=== PATIENT | male | born 1950 | race Caucasian/White ===

== ENCOUNTER 2017-09-02 10:18 | Inpatient (IN) | payer MEDICARE, BC ==
[2017-09-02] MEDS ORDERED: Ondansetron INJ* 2 MG/ML VIAL ONE (10:22)
[2017-09-02] MEDS ORDERED: Ondansetron INJ* 2 MG/ML VIAL IV ONE (10:33)
[2017-09-02] MEDS ORDERED: NS 0.9% 1000 ML* 2,000 ML IV ONE (10:33)
--- NOTE | 2017-09-02 11:09 | RAD ---
Indication: Syncope. Single frontal view of the chest performed at 1054 hours was reviewed. No prior study is available for comparison. No mediastinal shift is noted. Heart is of normal size and configuration. Lung cruz appear clear. IMPRESSION: NO ACTIVE CARDIOPULMONARY DISEASE IS NOTED.
[2017-09-02 11:17] LABS: EGFR Non-African American 101.1 (>60)
--- NOTE | 2017-09-02 11:31 | RAD ---
Indication: Syncope. CT of the brain was performed without IV contrast. No prior study is available for comparison. Ventricular structures are midline. No midline shift is noted. The extra-axial spaces are unremarkable. High density areas are noted in the basal ganglia bilaterally consistent with basal ganglia calcifications. No intracranial mass or hemorrhage is noted. Mastoid air cells are well aerated. Paranasal sinuses are clear. IMPRESSION: NO INTRACRANIAL MASS OR HEMORRHAGE IS NOTED.
--- NOTE | 2017-09-02 11:34 | RAD ---
Indication: Syncope, neck injury. CT of the cervical spine was obtained in the axial plane. Sagittal and coronal reconstructed images were obtained. The skull base demonstrates no fracture. The C1 ring is grossly intact. The remainder of the vertebral bodies appear normal in height. At C2-C3 there is osteophyte formation. No fractures noted. No central or foraminal stenosis is noted. C3-C4 spondylitic ridge with left uncovertebral joint and left facet arthropathy resulting in left foraminal stenosis. No fracture is noted. At C4-C5 spondylitic ridge with osteophyte formation is noted. Left uncovertebral joint hypertrophy and left facet arthropathy is noted resulting in left foraminal stenosis. At C5-C6 spondylitic ridge is noted. No central or foraminal stenosis is noted. Anterior osteophyte formation is noted. At C6-C7 spondylitic ridge with disc space narrowing, broad-based protrusion flattens the thecal sac. No central or foraminal stenosis is noted. At C7-T1 no disc protrusion is noted. IMPRESSION: Multilevel degenerative disc disease is noted. No fracture is noted.
[2017-09-02 11:51] LABS: ABS Basophils 0.1 10^3/ul (0-0.2); ABS Eosinophils 0.2 10^3/ul (0-0.6); ABS Lymphocytes 2.3 10^3/ul (1.0-4.8); ABS Monocytes 0.8 10^3/ul (0-0.8); ABS Neutrophils 5.7 10^3/ul (1.5-7.7); ABS Nucleated RBC 0 10^3/ul; Eosinophil % 1.8 % (0-6); Hematocrit 37 % (42-52); Hemoglobin 13.5 g/dl (14.0-18.0); Lymphocyte % 25.5 % (25-47); Mean Corpuscular HGB Conc 36 g/dl (31-36); Mean Corpuscular Hemoglobin 32 pg (27-31); Mean Corpuscular Volume 88 fL (80-94); Mean Platelet Volume 8 um3 (7.4-10.4); Nucleated Red Blood Cells % 0.1; Platelet Count 184 10^3/ul (150-450); Red Cell Distribution Width 13 % (10.5-15)
[2017-09-02] MEDS ORDERED: NS 0.9% 1000 ML*IV.FLUID IV ONE (12:05)
[2017-09-02] MEDS ORDERED: Norepinephrine 16MCG/ML IVPRE* 4,000 MCG/250 ML BAG IV ONE (12:26)
[2017-09-02] MEDS ORDERED: Piperacillin/Tazobac ADVAN(*) 3.375 GM in NS 0.9% 100 ML* 100 ML IVPB ONE (12:27)
[2017-09-02] MEDS ORDERED: Hydrocortisone INJ* 100 MG VIAL IV ONE (12:28)
[2017-09-02] MEDS ORDERED: Acetaminophen TAB* 325 MG PO PRN (12:30)
[2017-09-02] MEDS ORDERED: Ondansetron INJ* 2 MG/ML VIAL IV PRN (12:31)
[2017-09-02] MEDS ORDERED: Magnesium Sulfate 2 GM IV* 2 GM/50 ML BAG IVPB ONE (12:31)
[2017-09-02] MEDS ORDERED: Phenylephrine INJ* 10 MG/ML 1 ML VIAL (10 MG) ONE (12:56)
[2017-09-02] MEDS ORDERED: Zosyn per Pharmacy* NOTE FOLLOW UP SCH (13:00)
[2017-09-02] MEDS ORDERED: Norepinephrine 16MCG/ML IVPRE* 4,000 MCG/250 ML BAG IV SCH (13:00)
[2017-09-02] MEDS ORDERED: Hydrocortisone INJ* 100 MG VIAL IV SCH (13:00)
[2017-09-02] MEDS ORDERED: Phenylephrine INJ* 50 MG in NS 0.9% 250 ML* 245 ML IV SCH (13:00)
[2017-09-02 13:21] LABS: EGFR Non-African American 109.2 (>60)
[2017-09-02 14:01] LABS: Urine Appearance Clear; Urine Blood Negative (Negative); Urine Color Yellow; Urine Ketones 1+ (Negative); Urine Protein 1+(30 mg/dL) (Negative); Urine Urobilinogen Negative (Negative)
--- NOTE | 2017-09-02 14:59 | CONSULT ---
Consult Consult: Consultation Note -- Critical Care Requesting: Juan Romero Reason for consult: hypotension Limitations in history/physical: none Date of consult: 09/02/2017 HPI: 66y M with no sig past history. Brought to ER by EMS after syncopal episode. Patient states he was walking his weekly walk with in [place] and suddenly felt dizzy and lightheaded and then doesnt remember what happened. As per , he passed out and started coming to it after EMS arrival. He states he had no sob/cp/palpitations/weakness/tingling. No recent fever/chills/n/v. no sick contacts though did have strept throat recently. He states he eats well, sleeps okay and eats vegan. Stopped smoking 35 years back and stopped drinking 1 year back but before that had a small relapse but use to drink heavy in the past. No recent bug bites or travel. He has said for the past week he has felt weak in the evenings and has been sleeping earlier. Of note, his wifes mother last week and they have been under some stress. He started his day with exercise at 5am today and felt fine all morning. In ER, BP was 70-80s, started on IVF bolus. Temp normal but then rectal temp 94F. Given a total of 4-5 L NS but BP still 80s, started on levophed. He was slightly delirious on arrival but improved after IVF. EKG demonstrated nsr, no st/t changes, no heart block. Imaging, CXR, CT brain, CT neck all negative for acute findings. Admitted to ICU. ROS: negative except for pertinent positives mentioned above. PMHx: none PSHx: none Family History: none signficant Social History: Alcohol-none, past heavy drinker, last drink 1 year back; Smoking-stopped 35 yrs back; Drug use-none; Lives with Allergies: strawberry (swelling), seasonal allergy Home Medications: none; except OTC vitamins and Claritin prn for allergies Tele: sinus bradycardia 59 Vitals: Vital Signs Temp 97.7 F 09/02/17 14:28 Pulse 81 09/02/17 14:28 Resp 18 09/02/17 14:28 BP 100/64 09/02/17 14:15 Pulse Ox 93 09/02/17 14:28 Intake & Output 09/01/17 09/02/17 09/02/17 18:59 06:59 18:59 Intake Total 2004 Output Total 450 Balance 1555 Weight 0 oz Intake: IV Fluids 2004 Output: York 450 O2/Vent: RA Infusions: levophed, changing to kayleigh Current Medications: Acetaminophen (Tylenol Tab*) 650 mg PO Q6H PRN PRN Reason: FEVER/PAIN Heparin Sodium (Porcine) (Heparin Vial(*)) 5,000 units SUBCUT Q8HR NANCY Phenylephrine HCl 50 mg/ (Sodium Chloride) 250 mls @ 15 mls/hr IV .(Initial Rate) NANCY PRN Reason: 50 MCG/MIN Last Admin: 09/02/17 14:06 Dose: 3 mls/hr Ondansetron HCl (Zofran Inj*) 4 mg IV Q6H PRN PRN Reason: NAUSEA Physical Exam: General: awake, alert, no distress, no diaphoresis Head: normocephalic, atraumatic HEENT: no pallor, no icterus, moist mucous membranes Neck: soft, supple, no jvd, no stridor CVS: normal rate, regular, no murmur Resp: bilateral air entry, no rhales, no wheeze, no rhonchi, no acc muscle use Abdomen: soft, nontender, nondistended, bowel sounds present Ext: pulses+, warm, no edema Skin: intact, no breakdown, no dryness Neuro: awake, alert, orientedx3, moving all extremities, no gross focal deficit Labs: Laboratory Results - last 24 hr 09/02/17 09/02/17 09/02/17 10:51 10:51 10:51 WBC RBC Hgb Hct MCV MCH MCHC RDW Plt Count MPV Neut % (Auto) Lymph % (Auto) Mathews % (Auto) Eos % (Auto) Baso % (Auto) Absolute Neuts (auto) Absolute Lymphs (auto) Absolute Monos (auto) Absolute Eos (auto) Absolute Basos (auto) Absolute Nucleated RBC Nucleated RBC % INR (Anticoag Therapy) 0.90 APTT 29.3 Fibrinogen D-Dimer, Quantitative < 200 Sodium 133 Potassium 3.6 Chloride 104 Carbon Dioxide 19 L Anion Gap 10 BUN 13 Creatinine 0.77 Est GFR ( Amer) 130.0 Est GFR (Non-Af Amer) 101.1 BUN/Creatinine Ratio 16.9 Glucose 160 H Hemoglobin A1c Lactic Acid Calcium 8.4 L Magnesium 1.7 L Total Bilirubin 0.90 AST 14 ALT 13 Alkaline Phosphatase 55 Total Creatine Kinase 74 Troponin I 0.00 C-Reactive Protein B-Natriuretic Peptide 16 Total Protein 5.2 L Albumin 3.4 Globulin 1.8 L Albumin/Globulin Ratio 1.9 Procalcitonin TSH 3.55 Free T4 1.00 Total T3 0.97 Cortisol 29.24 Urine Color Urine Appearance Urine pH Ur Specific [place] Urine Protein Urine Ketones Urine Blood Urine Nitrate Urine Bilirubin Urine Urobilinogen Ur Leukocyte Esterase Urine WBC (Auto) Urine RBC (Auto) Urine Bacteria Urine Glucose Urine Opiates Screen Ur Barbiturates Screen Ur Phencyclidine Scrn Ur Amphetamines Screen U Benzodiazepines Scrn Urine Cocaine Screen U Cannabinoids Screen Serum Alcohol < 10 Influenza A (Rapid) Influenza B (Rapid) Group A Strep Rapid 09/02/17 09/02/17 09/02/17 10:51 10:51 10:51 WBC 9.0 RBC 4.20 Hgb 13.5 L Hct 37 L MCV 88 MCH 32 H MCHC 36 RDW 13 Plt Count 184 MPV 8 Neut % (Auto) 63.1 Lymph % (Auto) 25.5 Mathews % (Auto) 8.8 Eos % (Auto) 1.8 Baso % (Auto) 0.8 Absolute Neuts (auto) 5.7 Absolute Lymphs (auto) 2.3 Absolute Monos (auto) 0.8 Absolute Eos (auto) 0.2 Absolute Basos (auto) 0.1 Absolute Nucleated RBC 0 Nucleated RBC % 0.1 INR (Anticoag Therapy) APTT Fibrinogen D-Dimer, Quantitative Sodium Potassium Chloride Carbon Dioxide Anion Gap BUN Creatinine Est GFR ( Amer) Est GFR (Non-Af Amer) BUN/Creatinine Ratio Glucose Hemoglobin A1c 5.1 Lactic Acid 2.8 H* Calcium Magnesium Total Bilirubin AST ALT Alkaline Phosphatase Total Creatine Kinase Troponin I C-Reactive Protein B-Natriuretic Peptide Total Protein Albumin Globulin Albumin/Globulin Ratio Procalcitonin TSH Free T4 Total T3 Cortisol Urine Color Urine Appearance Urine pH Ur Specific [place] Urine Protein Urine Ketones Urine Blood Urine Nitrate Urine Bilirubin Urine Urobilinogen Ur Leukocyte Esterase Urine WBC (Auto) Urine RBC (Auto) Urine Bacteria Urine Glucose Urine Opiates Screen Ur Barbiturates Screen Ur Phencyclidine Scrn Ur Amphetamines Screen U Benzodiazepines Scrn Urine Cocaine Screen U Cannabinoids Screen Serum Alcohol Influenza A (Rapid) Influenza B (Rapid) Group A Strep Rapid 09/02/17 09/02/17 09/02/17 11:08 11:09 12:40 WBC RBC Hgb Hct MCV MCH MCHC RDW Plt Count MPV Neut % (Auto) Lymph % (Auto) Mathews % (Auto) Eos % (Auto) Baso % (Auto) Absolute Neuts (auto) Absolute Lymphs (auto) Absolute Monos (auto) Absolute Eos (auto) Absolute Basos (auto) Absolute Nucleated RBC Nucleated RBC % INR (Anticoag Therapy) APTT Fibrinogen D-Dimer, Quantitative Sodium Potassium Chloride Carbon Dioxide Anion Gap BUN 12 Creatinine 0.72 Est GFR ( Amer) 140.5 Est GFR (Non-Af Amer) 109.2 BUN/Creatinine Ratio Glucose Hemoglobin A1c Lactic Acid Calcium Magnesium Total Bilirubin AST ALT Alkaline Phosphatase Total Creatine Kinase Troponin I 0.00 C-Reactive Protein < 1.00 B-Natriuretic Peptide Total Protein Albumin Globulin Albumin/Globulin Ratio Procalcitonin TSH Free T4 Total T3 Cortisol Urine Color Urine Appearance Urine pH Ur Specific [place] Urine Protein Urine Ketones Urine Blood Urine Nitrate Urine Bilirubin Urine Urobilinogen Ur Leukocyte Esterase Urine WBC (Auto) Urine RBC (Auto) Urine Bacteria Urine Glucose Urine Opiates Screen Ur Barbiturates Screen Ur Phencyclidine Scrn Ur Amphetamines Screen U Benzodiazepines Scrn Urine Cocaine Screen U Cannabinoids Screen Serum Alcohol Influenza A (Rapid) Negative Influenza B (Rapid) Negative Group A Strep Rapid Negative 09/02/17 09/02/17 09/02/17 12:40 12:40 13:00 WBC RBC Hgb Hct MCV MCH MCHC RDW Plt Count MPV Neut % (Auto) Lymph % (Auto) Mathews % (Auto) Eos % (Auto) Baso % (Auto) Absolute Neuts (auto) Absolute Lymphs (auto) Absolute Monos (auto) Absolute Eos (auto) Absolute Basos (auto) Absolute Nucleated RBC Nucleated RBC % INR (Anticoag Therapy) APTT Fibrinogen 284 D-Dimer, Quantitative Sodium Potassium Chloride Carbon Dioxide Anion Gap BUN Creatinine Est GFR ( Amer) Est GFR (Non-Af Amer) BUN/Creatinine Ratio Glucose Hemoglobin A1c Lactic Acid Calcium Magnesium Total Bilirubin AST ALT Alkaline Phosphatase Total Creatine Kinase Troponin I C-Reactive Protein B-Natriuretic Peptide Total Protein Albumin Globulin Albumin/Globulin Ratio Procalcitonin < 0.1 TSH Free T4 Total T3 Cortisol Urine Color Yellow Urine Appearance Clear Urine pH 8.0 Ur Specific [place] 1.010 Urine Protein 1+(30 mg/dl) H Urine Ketones 1+ H Urine Blood Negative Urine Nitrate Negative Urine Bilirubin Negative Urine Urobilinogen Negative Ur Leukocyte Esterase Negative Urine WBC (Auto) Trace(0-5/hpf) Urine RBC (Auto) Trace(0-2/hpf) Urine Bacteria Absent Urine Glucose Negative Urine Opiates Screen Ur Barbiturates Screen Ur Phencyclidine Scrn Ur Amphetamines Screen U Benzodiazepines Scrn Urine Cocaine Screen U Cannabinoids Screen Serum Alcohol Influenza A (Rapid) Influenza B (Rapid) Group A Strep Rapid 09/02/17 09/02/17 13:00 13:52 WBC RBC Hgb Hct MCV MCH MCHC RDW Plt Count MPV Neut % (Auto) Lymph % (Auto) Mathews % (Auto) Eos % (Auto) Baso % (Auto) Absolute Neuts (auto) Absolute Lymphs (auto) Absolute Monos (auto) Absolute Eos (auto) Absolute Basos (auto) Absolute Nucleated RBC Nucleated RBC % INR (Anticoag Therapy) APTT Fibrinogen D-Dimer, Quantitative Sodium Potassium Chloride Carbon Dioxide Anion Gap BUN Creatinine Est GFR ( Amer) Est GFR (Non-Af Amer) BUN/Creatinine Ratio Glucose Hemoglobin A1c Lactic Acid 2.0 Calcium Magnesium Total Bilirubin AST ALT Alkaline Phosphatase Total Creatine Kinase Troponin I C-Reactive Protein B-Natriuretic Peptide Total Protein Albumin Globulin Albumin/Globulin Ratio Procalcitonin TSH Free T4 Total T3 Cortisol Urine Color Urine Appearance Urine pH Ur Specific [place] Urine Protein Urine Ketones Urine Blood Urine Nitrate Urine Bilirubin Urine Urobilinogen Ur Leukocyte Esterase Urine WBC (Auto) Urine RBC (Auto) Urine Bacteria Urine Glucose Urine Opiates Screen None detected Ur Barbiturates Screen None detected Ur Phencyclidine Scrn None detected Ur Amphetamines Screen None detected U Benzodiazepines Scrn None detected Urine Cocaine Screen None detected U Cannabinoids Screen None detected Serum Alcohol Influenza A (Rapid) Influenza B (Rapid) Group A Strep Rapid Imaging: cxr 09/02 - no acute process ct brain 09/02 - no acute process ct neck 09/02 - negative ekg 09/02 - nsr, no st/t changes Assessment: 66y M with no sig past history. Brought to ER by EMS after syncopal episode. Patient states he was walking his weekly walk with in [place] and suddenly felt dizzy and lightheaded and then doesnt remember what happened. in ER, hypotensive 70-80s, given IVF bolus, started on pressors after 4-5L and no response. -Syncopal episode -Shock, unclear etiology; not clearly septic, not hypovolemic; r/o cardiogenic vs anaphylactic/distributive Plan: Neuro- stable. no focal or abnormal neurological findings noted. CVS- shock, on levo. switching to kayleigh peripherally. BP now 100-110 systolic, MAPs 70s. mental status improved. LA trending down from 2.8. repleted Mg in ER via IV. Pending ECHO to eval cardiac function. blood cultures done. given zosyn x1. clinical suspicion less for sepsis. will continue iv abx till cultures return. hydrocortisone given, but cortisol normal, will d/c for now. may even consider some SQ epi to see if any anaphylaxis response. Tele monitoring for arrythmia. pepcid IV. will continue hydrocortisone for 24 hours. Resp- RA, no distress. no wheezing. cxr clear. ID- hypothermic, wbc 9. no clear source of infection. s/p zosyn x1, blood cultures sent. cxr no infiltrate. GI- regular diet. Renal- Cr okay, metabolic acidosis+, elevated LA+. K 3.6, replete with PO. s/p 4 -5L NS. hold IVF now. Heme- hg stable, plt okay. not on AC. Endo- fingersticks as needed. check hba1c Musculsk- pressure ulcer proph. bedrest Wounds- none Nutrition- regular diet DVT prophylaxis: heparin sq GI prophylaxis: pepcid Central Line: - Arterial Line: - York Cathetor: - Disposition: ICU Code Status: full code Total Critical Care time is 40 minutes, excluding procedures/teaching Alfonso Helms MD Clerical Adjuster (Electronically Signed)
[2017-09-02] MEDS: Heparin VIAL(*) 5000 UNITS/ML VIAL (FIVE THOUSAND) SUBCUT SCH ×2 (15:14→22:47)
--- NOTE | 2017-09-02 15:57 | HP ---
CC: Dr. Marrufo; Dr. Helms * HISTORY AND PHYSICAL: DATE OF ADMISSION: 09/02/17 PRIMARY CARE PROVIDER: Jacob Marrufo MD ATTENDING PHYSICIAN WHILE IN THE HOSPITAL: Tegan Pabon DO * (report dictated by Juan Romero NP) CHIEF COMPLAINT: Syncope. HISTORY OF PRESENT ILLNESS: Mr. Andrews is a 66-year-old male patient. He has a history of alcoholism in the past and history of hyperlipidemia that is now diet controlled. He comes into the ED today. He states he got up at 4:30 doing his normal routine. He went for a 3-mile hike. He did well with this. He came home. He had a light breakfast and then he did some light weightlifting exercises. He had a larger breakfast after that and then he wanted to get the day going and went for a 6-mile hike with his . While in the midst of him doing this hike, he was going uphill for the third time, never had any chest pressure, never felt short of breath, he said he just felt a little lightheaded and dizzy, did not feel like that he was spinning. He had no facial drooping, no weakness to one side and he collapsed. It is unclear how long he was down for. There was no chest pain after, when he came to he recognized his and he knew he got loaded up in the ambulance. He remembers the ride over here. He had no chest pain after. He states he just feels a little lightheaded now and he feels dizzy, but he does not feel like the room is spinning. He gives no history of recent illness. No fevers. No cough. No URI symptoms. He denies any feeling of rhinorrhea, sore throat, or feeling stuffed up and he states typically he does not have any chest pain. He states typical blood pressure for him is like 110 systolic and to his knowledge, he has no trouble with thyroid. No history of cancers. No recent rashes or open sores or areas like that. He denies having any vomiting or diarrhea or any abdominal discomfort. He came into the ED. Initially when he came in, his blood pressure was stable; however, while here it is noted that his blood pressure did drop down into the 80s systolic and despite 5 liters of fluid it did not improve. We were asked to evaluate for admission. The states that he did not appear to be confused right after and there was no reports of shaking or seizure like activity. PAST MEDICAL HISTORY: Significant for; 1. History of alcoholism in the past, last relapse was a year ago. 2. History of hyperlipidemia. PAST SURGICAL HISTORY: 1. He has had cataract. 2. Tonsillectomy. 3. Vasectomy. HOME MEDICATIONS: Include Clarinex 5 p.o. every other day. ALLERGIES TO MEDICATIONS: Include no known drug allergies. FAMILY HISTORY: His mother had a history of cancer. His father is still alive. He is healthy to his knowledge. SOCIAL HISTORY: He does not smoke. He is again former alcoholic. No recreational drugs. Surrogate decision maker is his . REVIEW OF SYSTEMS: There is no documented fever at home or chills but he does admit being hypothermic. It was noted here that he was hypothermic. He denied having any significant weight change. He denies having any ear discharge. He denies having any rhinorrhea. There is no sore throat, no thyroid enlargement. Denies having any chest pain. There is no orthopnea. There is no nocturnal dyspnea. He denies having any abdominal pain. There was no nausea, no vomiting , no dysuria. There was no frequency, no seizure, no loss of consciousness, no pruritus and no skin ulcerations. Review of 14 systems completed, all others negative. PHYSICAL EXAMINATION GENERAL: At this time, Mr. Andrews is a 66-year-old male patient. He is sitting in the ED stretcher. He does not appear to be in any acute distress. He is well- nourished, well-developed. VITAL SIGNS: Blood pressure now 97/51 on 2 mcg of Levophed. His temperature is 97.5 temporal, but he required Eva hugger and fluid warming and his pulse is 65, his respirations were 18. His O2 saturation was 98%. HEENT: Head is atraumatic. Eyes: Sclerae anicteric and not pale. Throat: Oral mucosa appears to be dry. No oropharyngeal erythema. NECK: Supple. LUNGS: Clear to auscultation bilaterally. No wheezes, rales, or rhonchi. HEART: Sounds S1 and S2. Regular rate and rhythm. No murmurs, rubs, or gallops. ABDOMEN: Soft, it is flat, nontender. Bowel sounds present. EXTREMITIES: Pulses were 2+ throughout. He is moving all 4 extremities with 5/ 5 strength. NEUROLOGIC: The patient is awake. He is alert. He is oriented x3. His speech is clear. His tongue is midline. [id number] is intact bilaterally. Otmn-an-lmpw is intact bilaterally. No pronator drift. He has no gross focal deficits. SKIN: Intact. LABORATORY DATA/DIAGNOSTIC STUDIES: WBC of 9, RBC of 4.20, hemoglobin 13.5, hematocrit 37, and platelet count 184. INR 0.9, PTT of 29.3. D-dimer less than 200. Sodium is 133, potassium 3.6, chloride of 104, bicarb is 19, BUN 13, creatinine of 0.77, glucose 160, lactate 2.8, calcium 8.4, magnesium 1.7, total bilirubin 0.8, AST 14, ALT 13, alkaline phosphatase was 55. CK 74, troponins 0. His BNP is 16. Total protein 5.2, albumin was 3.4. Cortisol pending. TSH was normal. Toxicology is negative. Serology was negative for flu and strep. He had imaging here in the ED starting out with brain CT, which revealed no intracranial mass or hemorrhage noted. He had cervical spine CT which revealed multilevel degenerative disc disease noted. No fracture identified. He had a chest x-ray which revealed no active cardiopulmonary disease. There was EKG, initial EKG shows sinus rhythm, rate of 94. No ST elevations or T-wave inversions were noted. He had this repeat EKG, heart rate was now down to 67, would appear to be sinus rhythm. No ST elevation or T-wave inversions. It was a normal rhythm. Old medical records were reviewed. ASSESSMENT AND PLAN: Mr. Andrews is a 66-year-old male patient coming into the ED today with complaints of a syncopal episode. We were asked to evaluate for admission. He will be admitted under inpatient status for: 1. Syncope. Etiology is unclear. When he is stable, I would check orthostatic blood pressures but right now he has had 5 liters of fluid and his blood pressure lying down is noted to be in the 80 systolic. He was requiring 2 mcg of Levophed to get him up to the systolics of 97. I did touch base with Dr. Helms. We are going to switch him over to Paul-Synephrine as we are going to on this peripherally. I will start him on at 50 mcg per the recommendation of Dr. Helms. I will get an echo. We will cycle his troponins. We will place him on telemetry and we will continue to follow. 2. Hypotension with hypothermia. Again I questioned the etiology of this. I question if there maybe some underlying adrenal insufficiency, possibly an occult infection. He was pancultured. I am going to give him a one time dose of Zosyn. We are going to panculture him. We will check his urine. His flu swab was negative and we will continue to follow him. Also checking a procalcitonin. I am going to give him empirically a dose of hydrocortisone to see if he does improves the blood pressure. 3. Lactic acidosis. Again, this is probably in the setting of hypotension. We are going to hydrate him and again panculture him and we will continue to follow this serially. 4. DVT prophylaxis. Heparin subcu. 5. History of alcoholism. Not an active issue. 6. Hypomagnesemia. We will replace his magnesium. 7. Code status. Full code. 8. Fluids, electrolytes, and nutrition. He can have a clear liquid diet. TIME SPENT: Time spent on the admission was approximately 60 minutes, greater than half the time was spent [id number] with the patient obtaining my history of physical; the other half time was spent going over the plan of care with the patient and implementing plan of care. I did discuss the plan of care with my attending, Dr. Pabon, who is in agreement. I am also consulting with Dr. Helms. JUAN ROMERO, SUNITA [id number]/CPS #: [id number] SHEELA
--- NOTE | 2017-09-02 16:11 | ECHO ---
Patient: PATRICIA HORAN [facility] Rec#: [id number] : 1950 Date: 09/02/2017 Age: 66y Height: 175.3 cm / 69.0 in Weight: 88.5 kg / 195.1 lbs Sex: M BSA: 2 Room#: ICU 4 Admit Date#: 09/02/2017 Type: Inpatient Referring: Juan Romero NP Reading: Armani Rosen MD Racing Mechanic: Ysabel Bates RN RDCS CC: Jacob Marrufo MD Transthoracic Echocardiogram Indication: Syncope, hypotension BP: 108/68 HR: 63 Rhythm: NSR Findings History: Dyslipidemia, gout, former smoker, former heavy alcohol use. Technical Comments: The study quality is fair. The study is technically limited due to the patient's smoking history. The patient was on a vasopressor drip during the exam. Echo completed at 1530. Left Ventricle: The left ventricular chamber size is normal. Septal wall hypertrophy is observed. Global left ventricular wall motion and contractility are within normal limits. There is normal left ventricular systolic function. The estimated ejection fraction is greater than 65%. There is an E to A reversal in the mitral valve flow pattern suggestive of diastolic dysfunction. Left Atrium: The left atrial chamber size is normal. Right Ventricle: The right ventricle is slightly dilated. The right ventricular global systolic function is low normal. Right Atrium: The right atrial cavity size is normal. Aortic Valve: The aortic valve is trileaflet. The aortic valve leaflets are mildly thickened. There is no evidence of aortic regurgitation. There is no evidence of aortic stenosis. Mitral Valve: The mitral valve leaflets are mildly thickened. There is trace to mild mitral regurgitation. There is no evidence of mitral stenosis. Tricuspid Valve: The tricuspid valve leaflets are normal. There is trace tricuspid regurgitation. Unable to estimate the right ventricular systolic pressure. There is no tricuspid stenosis. Pulmonic Valve: The pulmonic valve appears normal. There is mild pulmonic regurgitation. There is no pulmonic stenosis. Pericardium: There is no significant pericardial effusion. A pericardial fat pad is visualized. Aorta: There is no dilatation of the ascending aorta. There is no dilatation of the aortic arch. There is mild dilatation of the aortic root. Pulmonary Artery: The main pulmonary artery appears normal. Venous: The venous system is not well visualized. The inferior vena cava is not visualized. Conclusions Dyslipidemia, gout, former smoker Global left ventricular wall motion and contractility are within normal limits. There is normal left ventricular systolic function. The estimated ejection fraction is greater than 65%. The right ventricular global systolic function is low normal. There is no evidence of aortic stenosis. There is trace to mild mitral regurgitation. There is trace tricuspid regurgitation. Unable to estimate the right ventricular systolic pressure. There is no significant pericardial effusion. Measurements Name Value Normal Range RVDdMajor (2D) 4.2 cm (2.2 - 4.4) RAd ISD 4CH 4.3 cm (3.4 - 4.9) RA (A4C)W 4.2 cm (2.9 - 4.6) IVSd (2D) 1.2 cm (0.6 - 1) LVPWd (2D) 1 cm (0.6 - 1) LVIDd (2D) 3.9 cm (3.6 - 5.4) LVIDs (2D) 2.4 cm - LV FS (2D) 39 % (25 - 45) Aortic Annulus 2.2 cm (1.4 - 2.6) Ao root diameter (2D) 3.6 cm (2.1 - 3.5) Ascending Ao 3.2 cm (2.1 - 3.4) Aortic arch 3 cm (1.8 - 3.4) LA dimension (AP) 2D 3.3 cm (2.3 - 3.8) LAd ISD 4CH 4.2 cm (2.9 - 5.3) LA ISD 4CH W 3.9 cm (2.5 - 4.5) Name Value Normal Range LA ESV SP 4CH (A/L) 40 ml - LA ESV SP 2CH (A/L) 44 ml - LA ESV BP (A/L) 44 ml - LA ESV BP (A/L) index 21.5 ml/m2 - LA ESV SP 4CH (MOD) 35 ml - LA ESV SP 2CH (MOD) 43 ml - Name Value Normal Range MV E-wave Vmax 0.8 m/sec - MV deceleration time 195 msec - MV A-wave Vmax 0.98 m/sec - MV E:A ratio 0.82 ratio - LV septal e' Vmax 0.09 m/sec - LV lateral e' Vmax 0.12 m/sec - LV E:e' septal ratio 8.9 ratio - LV E:e' lateral ratio 6.7 ratio - Name Value Normal Range AV Vmax 1.3 m/sec - AV VTI 30.4 cm - AV peak gradient 7.2 mmHg - AV mean gradient 4.6 mmHg - LVOT Vmax 1.2 m/sec - LVOT VTI 27.2 cm - LVOT peak gradient 5.6 mmHg - LVOT mean gradient 3.7 mmHg - KALIE Vmax 1.1 m/sec - Name Value Normal Range PV Vmax 0.95 m/sec -
[2017-09-02] MEDS ORDERED: Iohexol 350* (CONTRAST) 500 ML MDV IV ONE (16:58)
--- NOTE | 2017-09-02 17:34 | RAD ---
INDICATION: Chest pain. Short of breath. Evaluate for pulmonary embolus. D-dimer less than 200 COMPARISON: Chest x-ray September 02, 2017 TECHNIQUE: Axial source images were obtained from the thoracic inlet to the hemidiaphragms following administration of [address] angiographic technique was utilized. Coronal and sagittal reconstructed images were acquired. CHEST FINDINGS: Neck/thyroid: The visualized neck to include the thyroid appear normal. Chest wall: There are no acute abnormalities of the bony thorax or chest wall. There is no supraclavicular, infraclavicular, or axillary lymphadenopathy. Lungs : There are no pulmonary parenchymal masses or infiltrates. There is minor gravity dependent atelectasis in the lung bases. The pulmonary interstitium appears normal. There are no endobronchial lesions. Cardiomediastinal structures: There is no CT evidence of acute pulmonary embolic disease. The heart is normal in size. There is no pericardial effusion. There is no evidence of aortic aneurysm or dissection. There is no mediastinal or hilar adenopathy. The esophagus appears normal. Pleura : There are tiny bilateral pleural effusions. Other: None. IMPRESSION: NO CT EVIDENCE OF ACUTE PULMONARY EMBOLIC DISEASE.. MILD BIBASILAR HYPOVENTILATION.
--- NOTE | 2017-09-02 18:26 | RAD ---
INDICATION: Carotid stenosis COMPARISON: None TECHNIQUE: Transverse and longitudinal scans of the carotid and vertebral arteries were performed with morales scale, color Doppler, and spectral Doppler imaging. Stenosis criteria is based on flow velocities that correlate with visual internal carotid artery diameter (NASCET criteria) FINDINGS: Right carotid: There is moderate calcific plaque involving the bifurcation. There is no spectral broadening. The peak systolic velocity of the internal carotid artery is 153 cm/s and the peak diastolic velocity 32 cm/s. The ICA/CCA ratio is calculated at 0.8. This corresponds to a less than 50% diameter stenosis. Left carotid: There is no appreciable plaque involving the bifurcation. There is no spectral broadening. The peak systolic velocity of the internal carotid artery is 98 cm/s and the peak diastolic velocity 41 cm/s. The ICA/CCA ratio is calculated at 0.7. This corresponds to a less than 50% diameter stenosis. Right vertebral: Right vertebral waveforms are mildly dampened. The vessel is smaller in caliber than is the left vertebral artery. There is antegrade flow. Left vertebral: Left vertebral waveforms are normal and the flow is antegrade. IMPRESSION: NO EVIDENCE OF A HEMODYNAMICALLY SIGNIFICANT STENOSIS. MODERATE RIGHT-SIDED CALCIFIC PLAQUE FORMATION. CPT II Codes: 3100F PQRS
--- NOTE | 2017-09-02 20:59 | ED ---
Liset Masters Thomas, scribed for Madeline Garcia MD on 09/02/17 at 1027 . Syncope/Near Syncope - HPI Summary HPI Summary: The patient is a 66 year old male brought in by ambulance after a syncopal episode that occurred when he was hiking up a hill with his . Before the syncope, the patient was lightheaded for a few seconds. As a result of the syncope, he fell and struck his head. He did not have urinary incontinence. Per EMS, the patient was coming out a stuporous state when we arrived. He had dry heaves prior to arrival, and he is nauseous, diaphoretic, and lightheaded in the emergency department. The patient denies aphasia, chest pain, and a headache. EMS tracing does not show a STEMI. He did not have the flu shot this year. He is not on any medications except Claritin. Pt is a recovered alcoholic for many years, did have black out spells years ago when he was drinking. Had one relapse a few years ago with alcohol, but has been clean for years. Denies alcohol today or recently. Pt is a vegan, takes vitamins in addition to the claritin. Pt had also walked 3 miles this am before climbing 3 hills with his . Pt is used to this level of physical activity. Pt had not felt ill prior to this episode. - History Of Current Complaint Hx Obtained From: Patient Onset/Duration: Sudden Onset, Lasting Minutes, Still Present - he is still nauseous, mental status is improved Timing: Intermittent Episode Lasting Context: Witnessed Activity At Onset: Exertion - Hiking hills Associated Head Trauma: Yes Aggravating Factor(s): Nothing Alleviating Factor(s): Spontaneous Resolution Associated Signs And Symptoms: Diaphoresis, Head Trauma (Recent), Lightheadedness, Other - Dry heaves, nauseous; NEGATIVE: aphasia, chest pain, headache - Allergies/Home Medications Allergies/Adverse Reactions: Allergies Allergy/AdvReac Type Severity Reaction Status Date / Time strawberry Allergy Severe severe Verified 09/02/17 10:57 facial/head swelling ENVIRONMENTAL/SEASONAL Allergy Sneezing Uncoded 10/26/14 12:50 HAYFEVER Home Medications: Home Medications Desloratidine (NF) [Clarinex (NF)] 5 mg PO EVERY OTHER DAY 09/02/17 [History Confirmed 09/02/17] PMH/Surg Hx/FS Hx/Imm Hx Previously Healthy: No - recovered alcoholic Endocrine/Hematology History: Denies: Hx Diabetes Cardiovascular History: Denies: Hx Coronary Artery Disease, Hx Hypertension, Hx Myocardial Infarction Sensory History: Reports: Hx Contacts or Glasses - READING GLASSES Denies: Hx Hearing Aid Opthamlomology History: Reports: Hx Contacts or Glasses - READING GLASSES Neurological History: Denies: Hx Seizures Psychiatric History: Reports: Other Psychiatric Issues/Disorders - Hx recovering alcoholic - Surgical History Surgery Procedure, Year, and Place: 1984 VASECTOMY, OFFICE. 2013 COLONOSCOPY, [facility] [place]. Tonsillectomy Hx Anesthesia Reactions: Yes - LOCAL - SENSITVE - FLINCH - Family History Known Family History: Positive: Cardiac Disease, Other - Mother of ovarian cancer, father alive and well. - Social History Alcohol Use: None Alcohol Amount: Recovering alcoholic Substance Use Type: Reports: None Smoking Status (MU): Former Smoker Type: Pipe Amount Used/How Often: PIPE Have You Smoked in the Last Year: No Review of Systems Positive: Skin Diaphoresis Negative: Chest Pain Positive: Nausea, Other - Dry heaves Negative: incontinence Neurological: Negative - aphasia, Other - Lightheadedness Positive: Syncope. Negative: Headache All Other Systems Reviewed And Are Negative: Yes Physical Exam - Summary Physical Exam Summary: Appearance: mildly Ill-appearing, no pain distress, Well-nourished Skin: Warm, diaphoretic Head: Normal Head/Face inspection Eyes: Conjunctiva clear ENT: Normal inspection Neck: Supple, no nodes, no JVD. Respiratory: Lungs clear, Normal breath sounds, no respiratory distress Cardio: RRR, No murmur, pulses normal, brisk capillary refill Abdomen: soft, nontender Bowel sounds: present Rectal: There is normal tone. Soft brown stool is present Musculoskeletal: Strength Intact/ ROM intact. No calf tenderness. No edema. Neuro: Alert, muscle tone normal, facial symmetry, speech normal, sensory/motor intact Psychological: Normal Triage Information Reviewed: Yes Vital Signs Reviewed: Yes Diagnostics - Laboratory Result Diagrams: 09/02/17 10:51 09/02/17 12:40 Lab Statement: Any lab studies that have been ordered have been reviewed, and results considered in the medical decision making process. - Radiology CXR Xray Interpretation: No Acute Changes - NO ACTIVE CARDIOPULMONARY DISEASE IS NOTED. Dr. Garcia has reviewed this report. Radiology Interpretation Completed By: Radiologist - CT CT C-Spine CT Interpretation: No Acute Changes - Multilevel degenerative disc disease is noted. No fracture is noted. Dr. Garcia has reviewed this report. CT Interpretation Completed By: Radiologist CT Brain CT Interpretation: No Acute Changes - NO INTRACRANIAL MASS OR HEMORRHAGE IS NOTED. Dr. Garcia has reviewed this report. CT Interpretation Completed By: Radiologist - EKG 10:18 Cardiac Rate: NL EKG Rhythm: Sinus Rhythm - at [address] Segment: Non-Specific Ectopy: None EKG Interpretation: Normal AVIVCD, Normal QTc (490), normal axis. EKG Comparison: Other - No prior EKG to compare. 11:45 Cardiac Rate: NL EKG Rhythm: Sinus Rhythm - at [address] Segment: Non-Specific Ectopy: None EKG Interpretation: Normal AVIVD, Normal QTc, normal axis. EKG Comparison: No Significant Change - compared to previous EKG today at 10:18 Re-Evaluation - Re-Evaluation First Eval Re-Evaluation Time: 10:45 Change: Unchanged Comment: Per nurse, the patient had a soft normal brown BM with no blood streaking. Second Eval Re-Evaluation Time: 11:39 Change: Unchanged Comment: The patient notes some epigastric discomfort. I performed a rectal examination. There is normal tone and soft brown stool. We will send for Guiac. Blood pressure is 87/52. Pulse is 63 BPM. Third Eval Re-Evaluation Time: 11:52 Change: Unchanged Comment: Blood pressure is 80/50. Rectal temperature is 94. Course/Dx Course Of Treatment: Patients medications reviewed this visit. Allergies noted. Assessment/Plan: The patient is a 66 year old male brought in by ambulance after a syncopal episode that occurred when he was hiking up a hill with his . Before the syncope, the patient was lightheaded for a few seconds. As a result of the syncope, he fell and struck his head. He is nauseous, diaphoretic , and lightheaded in the emergency department. The patient was given IV fluids and Zofran. Bloodwork and EKG were obtained. Rapid influenza A and B and Rapid Strep are negative. CXR, CT Brain, and CT C-Spine are negative for acute disease. Dr. Pabon, hospitalist, will admit the patient. - Diagnoses Provider Diagnoses: Syncope, Hypotension, Hypothermia - Physician Notifications Discussed Care of Patient With: Tegan Pabon Time Discussed With Above Provider: 11:43 Instructed by Provider To: Other - Dr. Pabon, hospitalist, will admit the patient. - Critical Care Time Critical Care Time: 30-74 min Discharge - Discharge Plan Condition: Guarded Disposition: ADMITTED TO [facility] documentation as recorded by the Liset pitt Thomas accurately reflects the service I personally performed and the decisions made by me, Madeline Garcia MD.
[2017-09-03 05:36] LABS: ABS Basophils 0.1 10^3/ul (0-0.2); ABS Eosinophils 0.1 10^3/ul (0-0.6); ABS Lymphocytes 1.9 10^3/ul (1.0-4.8); ABS Monocytes 1.2 10^3/ul (0-0.8); ABS Neutrophils 5.9 10^3/ul (1.5-7.7); ABS Nucleated RBC 0 10^3/ul; Eosinophil % 0.8 % (0-6); Hematocrit 36 % (42-52); Hemoglobin 12.9 g/dl (14.0-18.0); Lymphocyte % 20.4 % (25-47); Mean Corpuscular HGB Conc 36 g/dl (31-36); Mean Corpuscular Hemoglobin 32 pg (27-31); Mean Corpuscular Volume 90 fL (80-94); Mean Platelet Volume 8 um3 (7.4-10.4); Nucleated Red Blood Cells % 0; Platelet Count 183 10^3/ul (150-450); Red Blood Count 4.01 10^6/ul (4.0-5.4); Red Cell Distribution Width 13 % (10.5-15); White Blood Count 9.1 10^3/ul (3.5-10.8)
[2017-09-03 05:44] LABS: EGFR Non-African American 114.4 (>60)
[2017-09-03] MEDS: Heparin VIAL(*) 5000 UNITS/ML VIAL (FIVE THOUSAND) SUBCUT SCH ×2 (07:41→15:59)
[2017-09-03] MEDS ORDERED: Famotidine IV * 20 MG in NS 0.9% 100 ML* 100 ML IVPB SCH (09:00)
[2017-09-03] MEDS ORDERED: Famotidine IV* 10 MG/ML 2 ML (20 mg) IV SLOW PU SCH (09:00)
--- NOTE | 2017-09-03 09:08 | PN ---
Progress Note - Progress Note Date of Service: 09/03/17 Note: Progress Note -- Critical Care 24 hours events: -admitted yesterday; weaned off pressors quickly -awake, alert, no tele events overnight, some episodes of rashel to 60s only. BP stable -no sob/cp/n/v/headache -CT chest neg for PE -carotids done, mod right plaque only Tele: sinus bradycardia at times to upper 50s, currently 60s Vitals: Vital Signs Temp 98.6 F 09/03/17 07:00 Pulse 76 09/03/17 07:59 Resp 20 09/03/17 07:00 BP 134/77 09/03/17 07:59 Pulse Ox 96 09/03/17 07:00 Intake & Output 09/02/17 09/03/17 09/03/17 18:59 06:59 18:59 Intake Total 2038 444 Output Total 1200 2505 Balance 838 -2061 Weight 210 lb 210 lb 1.608 oz Intake: IV Fluids 2038 16 NS (0.9%) 33 16 IVPB 28 NS (0.9%) 28 Oral 400 Output: York 1200 2505 O2/Vent: RA Infusions: heplock Current Medications Acetaminophen (Tylenol Tab*) 650 mg PO Q6H PRN PRN Reason: FEVER/PAIN Famotidine (Pepcid Iv*) 20 mg IV SLOW PU DAILY [facility] Last Admin: 09/03/17 07:42 Dose: Not Given Heparin Sodium (Porcine) (Heparin Vial(*)) 5,000 units SUBCUT Q8HR [facility] Last Admin: 09/03/17 07:41 Dose: 5,000 units Phenylephrine HCl 50 mg/ (Sodium Chloride) 250 mls @ 15 mls/hr IV .(Initial Rate) [facility] PRN Reason: 50 MCG/MIN Last Admin: 09/02/17 14:06 Dose: 3 mls/hr Ondansetron HCl (Zofran Inj*) 4 mg IV Q6H PRN PRN Reason: NAUSEA Physical Exam: General: awake, alert, no distress, no diaphoresis Head: normocephalic, atraumatic HEENT: no pallor, no icterus, moist mucous membranes Neck: soft, supple, no jvd, no stridor CVS: normal rate, regular, no murmur Resp: bilateral air entry, no rhales, no wheeze, no rhonchi, no acc muscle use Abdomen: soft, nontender, nondistended, bowel sounds present Ext: pulses+, warm, no edema Skin: intact, no breakdown, no dryness Neuro: awake, alert, orientedx3, moving all extremities, no gross focal deficit Labs: Laboratory Results - last 24 hr 09/02/17 09/02/17 09/02/17 10:51 10:51 10:51 WBC RBC Hgb Hct MCV MCH MCHC RDW Plt Count MPV Neut % (Auto) Lymph % (Auto) Baxter % (Auto) Eos % (Auto) Baso % (Auto) Absolute Neuts (auto) Absolute Lymphs (auto) Absolute Monos (auto) Absolute Eos (auto) Absolute Basos (auto) Absolute Nucleated RBC Nucleated RBC % ESR INR (Anticoag Therapy) 0.90 APTT 29.3 Fibrinogen D-Dimer, Quantitative < 200 Sodium 133 Potassium 3.6 Chloride 104 Carbon Dioxide 19 L Anion Gap 10 BUN 13 Creatinine 0.77 Est GFR ( Amer) 130.0 Est GFR (Non-Af Amer) 101.1 BUN/Creatinine Ratio 16.9 Glucose 160 H Hemoglobin A1c Lactic Acid Calcium 8.4 L Magnesium 1.7 L Total Bilirubin 0.90 AST 14 ALT 13 Alkaline Phosphatase 55 Total Creatine Kinase 74 Troponin I 0.00 C-Reactive Protein B-Natriuretic Peptide 16 Total Protein 5.2 L Albumin 3.4 Globulin 1.8 L Albumin/Globulin Ratio 1.9 Procalcitonin TSH 3.55 Free T4 1.00 Total T3 0.97 Cortisol 29.24 Urine Color Urine Appearance Urine pH Ur Specific [place] Urine Protein Urine Ketones Urine Blood Urine Nitrate Urine Bilirubin Urine Urobilinogen Ur Leukocyte Esterase Urine WBC (Auto) Urine RBC (Auto) Urine Bacteria Urine Glucose Urine Opiates Screen Ur Barbiturates Screen Ur Phencyclidine Scrn Ur Amphetamines Screen U Benzodiazepines Scrn Urine Cocaine Screen U Cannabinoids Screen Serum Alcohol < 10 Influenza A (Rapid) Influenza B (Rapid) Group A Strep Rapid 09/02/17 09/02/17 09/02/17 10:51 10:51 10:51 WBC 9.0 RBC 4.20 Hgb 13.5 L Hct 37 L MCV 88 MCH 32 H MCHC 36 RDW 13 Plt Count 184 MPV 8 Neut % (Auto) 63.1 Lymph % (Auto) 25.5 Baxter % (Auto) 8.8 Eos % (Auto) 1.8 Baso % (Auto) 0.8 Absolute Neuts (auto) 5.7 Absolute Lymphs (auto) 2.3 Absolute Monos (auto) 0.8 Absolute Eos (auto) 0.2 Absolute Basos (auto) 0.1 Absolute Nucleated RBC 0 Nucleated RBC % 0.1 ESR INR (Anticoag Therapy) APTT Fibrinogen D-Dimer, Quantitative Sodium Potassium Chloride Carbon Dioxide Anion Gap BUN Creatinine Est GFR ( Amer) Est GFR (Non-Af Amer) BUN/Creatinine Ratio Glucose Hemoglobin A1c 5.1 Lactic Acid 2.8 H* Calcium Magnesium Total Bilirubin AST ALT Alkaline Phosphatase Total Creatine Kinase Troponin I C-Reactive Protein B-Natriuretic Peptide Total Protein Albumin Globulin Albumin/Globulin Ratio Procalcitonin TSH Free T4 Total T3 Cortisol Urine Color Urine Appearance Urine pH Ur Specific [place] Urine Protein Urine Ketones Urine Blood Urine Nitrate Urine Bilirubin Urine Urobilinogen Ur Leukocyte Esterase Urine WBC (Auto) Urine RBC (Auto) Urine Bacteria Urine Glucose Urine Opiates Screen Ur Barbiturates Screen Ur Phencyclidine Scrn Ur Amphetamines Screen U Benzodiazepines Scrn Urine Cocaine Screen U Cannabinoids Screen Serum Alcohol Influenza A (Rapid) Influenza B (Rapid) Group A Strep Rapid 09/02/17 09/02/17 09/02/17 11:08 11:09 12:40 WBC RBC Hgb Hct MCV MCH MCHC RDW Plt Count MPV Neut % (Auto) Lymph % (Auto) Baxter % (Auto) Eos % (Auto) Baso % (Auto) Absolute Neuts (auto) Absolute Lymphs (auto) Absolute Monos (auto) Absolute Eos (auto) Absolute Basos (auto) Absolute Nucleated RBC Nucleated RBC % ESR INR (Anticoag Therapy) APTT Fibrinogen D-Dimer, Quantitative Sodium Potassium Chloride Carbon Dioxide Anion Gap BUN 12 Creatinine 0.72 Est GFR ( Amer) 140.5 Est GFR (Non-Af Amer) 109.2 BUN/Creatinine Ratio Glucose Hemoglobin A1c Lactic Acid Calcium Magnesium Total Bilirubin AST ALT Alkaline Phosphatase Total Creatine Kinase Troponin I 0.00 C-Reactive Protein < 1.00 B-Natriuretic Peptide Total Protein Albumin Globulin Albumin/Globulin Ratio Procalcitonin TSH Free T4 Total T3 Cortisol Urine Color Urine Appearance Urine pH Ur Specific [place] Urine Protein Urine Ketones Urine Blood Urine Nitrate Urine Bilirubin Urine Urobilinogen Ur Leukocyte Esterase Urine WBC (Auto) Urine RBC (Auto) Urine Bacteria Urine Glucose Urine Opiates Screen Ur Barbiturates Screen Ur Phencyclidine Scrn Ur Amphetamines Screen U Benzodiazepines Scrn Urine Cocaine Screen U Cannabinoids Screen Serum Alcohol Influenza A (Rapid) Negative Influenza B (Rapid) Negative Group A Strep Rapid Negative 09/02/17 09/02/17 09/02/17 12:40 12:40 13:00 WBC RBC Hgb Hct MCV MCH MCHC RDW Plt Count MPV Neut % (Auto) Lymph % (Auto) Baxter % (Auto) Eos % (Auto) Baso % (Auto) Absolute Neuts (auto) Absolute Lymphs (auto) Absolute Monos (auto) Absolute Eos (auto) Absolute Basos (auto) Absolute Nucleated RBC Nucleated RBC % ESR INR (Anticoag Therapy) APTT Fibrinogen 284 D-Dimer, Quantitative Sodium Potassium Chloride Carbon Dioxide Anion Gap BUN Creatinine Est GFR ( Amer) Est GFR (Non-Af Amer) BUN/Creatinine Ratio Glucose Hemoglobin A1c Lactic Acid Calcium Magnesium Total Bilirubin AST ALT Alkaline Phosphatase Total Creatine Kinase Troponin I C-Reactive Protein B-Natriuretic Peptide Total Protein Albumin Globulin Albumin/Globulin Ratio Procalcitonin < 0.1 TSH Free T4 Total T3 Cortisol Urine Color Yellow Urine Appearance Clear Urine pH 8.0 Ur Specific [place] 1.010 Urine Protein 1+(30 mg/dl) H Urine Ketones 1+ H Urine Blood Negative Urine Nitrate Negative Urine Bilirubin Negative Urine Urobilinogen Negative Ur Leukocyte Esterase Negative Urine WBC (Auto) Trace(0-5/hpf) Urine RBC (Auto) Trace(0-2/hpf) Urine Bacteria Absent Urine Glucose Negative Urine Opiates Screen Ur Barbiturates Screen Ur Phencyclidine Scrn Ur Amphetamines Screen U Benzodiazepines Scrn Urine Cocaine Screen U Cannabinoids Screen Serum Alcohol Influenza A (Rapid) Influenza B (Rapid) Group A Strep Rapid 09/02/17 09/02/17 09/02/17 13:00 13:52 15:13 WBC RBC Hgb Hct MCV MCH MCHC RDW Plt Count MPV Neut % (Auto) Lymph % (Auto) Baxter % (Auto) Eos % (Auto) Baso % (Auto) Absolute Neuts (auto) Absolute Lymphs (auto) Absolute Monos (auto) Absolute Eos (auto) Absolute Basos (auto) Absolute Nucleated RBC Nucleated RBC % ESR INR (Anticoag Therapy) APTT Fibrinogen D-Dimer, Quantitative Sodium Potassium Chloride Carbon Dioxide Anion Gap BUN Creatinine Est GFR ( Amer) Est GFR (Non-Af Amer) BUN/Creatinine Ratio Glucose Hemoglobin A1c Lactic Acid 2.0 Calcium Magnesium Total Bilirubin AST ALT Alkaline Phosphatase Total Creatine Kinase Troponin I 0.02 C-Reactive Protein B-Natriuretic Peptide Total Protein Albumin Globulin Albumin/Globulin Ratio Procalcitonin TSH Free T4 Total T3 Cortisol Urine Color Urine Appearance Urine pH Ur Specific [place] Urine Protein Urine Ketones Urine Blood Urine Nitrate Urine Bilirubin Urine Urobilinogen Ur Leukocyte Esterase Urine WBC (Auto) Urine RBC (Auto) Urine Bacteria Urine Glucose Urine Opiates Screen None detected Ur Barbiturates Screen None detected Ur Phencyclidine Scrn None detected Ur Amphetamines Screen None detected U Benzodiazepines Scrn None detected Urine Cocaine Screen None detected U Cannabinoids Screen None detected Serum Alcohol Influenza A (Rapid) Influenza B (Rapid) Group A Strep Rapid 09/03/17 09/03/17 09/03/17 05:10 05:10 05:10 WBC 9.1 RBC 4.01 Hgb 12.9 L Hct 36 L MCV 90 MCH 32 H MCHC 36 RDW 13 Plt Count 183 MPV 8 Neut % (Auto) 64.8 Lymph % (Auto) 20.4 L Baxter % (Auto) 13.2 H Eos % (Auto) 0.8 Baso % (Auto) 0.8 Absolute Neuts (auto) 5.9 Absolute Lymphs (auto) 1.9 Absolute Monos (auto) 1.2 H Absolute Eos (auto) 0.1 Absolute Basos (auto) 0.1 Absolute Nucleated RBC 0 Nucleated RBC % 0 ESR 11 INR (Anticoag Therapy) APTT Fibrinogen D-Dimer, Quantitative Sodium 135 Potassium 3.7 Chloride 109 Carbon Dioxide 21 L Anion Gap 5 BUN 8 Creatinine 0.69 Est GFR ( Amer) 147.1 Est GFR (Non-Af Amer) 114.4 BUN/Creatinine Ratio 11.6 Glucose 93 Hemoglobin A1c Lactic Acid 0.5 Calcium 8.4 L Magnesium 2.0 Total Bilirubin AST ALT Alkaline Phosphatase Total Creatine Kinase Troponin I C-Reactive Protein B-Natriuretic Peptide Total Protein Albumin Globulin Albumin/Globulin Ratio Procalcitonin TSH Free T4 Total T3 Cortisol Urine Color Urine Appearance Urine pH Ur Specific [place] Urine Protein Urine Ketones Urine Blood Urine Nitrate Urine Bilirubin Urine Urobilinogen Ur Leukocyte Esterase Urine WBC (Auto) Urine RBC (Auto) Urine Bacteria Urine Glucose Urine Opiates Screen Ur Barbiturates Screen Ur Phencyclidine Scrn Ur Amphetamines Screen U Benzodiazepines Scrn Urine Cocaine Screen U Cannabinoids Screen Serum Alcohol Influenza A (Rapid) Influenza B (Rapid) Group A Strep Rapid Imaging: cxr 09/02 - no acute process ct brain 09/02 - no acute process ct neck 09/02 - negative ekg 09/02 - nsr, no st/t changes CT chest 09/02 - no PE Carotid duplex - right moderate plaque ECHO 09/02 - LV fxn normal. mild RV dilatation, but normal systolic function. Assessment: 66y M with no sig past history. Brought to ER by EMS after syncopal episode. Patient states he was walking his weekly walk with in [place] and suddenly felt dizzy and lightheaded and then doesnt remember what happened. in ER, hypotensive 70-80s, given IVF bolus, started on pressors after 4-5L and no response. -Syncopal episode -Shock, unclear etiology; resolved Plan: Neuro- stable. no focal or abnormal neurological findings noted. CVS- Shock resolved, off pressors. NSR< intermittent rashel only. No arrythmias overnight. trop neg, ekg neg. CT chest neg, Carotids only mod right plaque. afebrile. unclear etiology of syncope and hypotension. vasovagal? arrythmia? not on BB or antihypertensives. will have cardiology evaluate patient, likely will need outpatient f/u. consider holter or loop recorder outpatient. Resp- RA, no distress ID- afebrile now, normal temp. wbc normal. no clear source of infection. s/p zosyn x1, blood cultures sent. cxr no infiltrate. GI- regular diet. Renal- Cr okay, metabolic acidosis improving, LA normalized. K 3.7, replete with PO. no IVF, euvolemic appearing. Heme- hg stable, plt okay. not on AC. Endo- fingersticks as needed. check hba1c Musculsk- pressure ulcer proph. bedrest, oob to chair Wounds- none Nutrition- regular diet DVT prophylaxis: heparin sq GI prophylaxis: pepcid Central Line: - Arterial Line: - [place] Cathetor: - Disposition: can transfer to monitored bed/tele Code Status: full code Alfonso Helms MD Computer Support Analyst (Electronically Signed)
[2017-09-03] MEDS ORDERED: Potassium Chloride LIQUID* 20 MEQ PACKET PO ONE (09:12)
[2017-09-03 15:56] VITALS: BP 109/69
--- NOTE | 2017-09-03 16:17 | DS ---
Discharge Summary Patient Name: Fish Andrews Date of Admission: 09/02/2017 Date of Discharge: 09/03/2017 Attending: Dr Alfonso Helms (tool and die manager) Consultants: - Admitting Diagnoses: 1) Syncope 2) Hypotension Discharge Diagnoses: 1) Syncope, possible vasovagal versus arrhythmia HPI/Hospital Course: 66y M with no sig past history. Brought to ER by EMS after syncopal episode. Patient states he was walking his weekly walk with in [place] and suddenly felt dizzy and lightheaded and then doesnt remember what happened. As per , he passed out and started coming to it after EMS arrival. He states he had no sob/cp/palpitations/weakness/tingling. No recent fever/chills/n/v. no sick contacts though did have strept throat recently. He states he eats well, sleeps okay and eats vegan. Stopped smoking 35 years back and stopped drinking 1 year back but before that had a small relapse but use to drink heavy in the past. No recent bug bites or travel. He has said for the past week he has felt weak in the evenings and has been sleeping earlier. Of note, his wifes mother last week and they have been under some stress. He started his day with exercise at 5am today and felt fine all morning. He was admitted for ICU for hypotension, transiently on neosynephrine IV but weaned off rapidly. Lactic acid improved. Transthoracic echo was performed demonstrating no acute LV dysfunction, only mild RV dilatation, no acute valvular abnormality, no pericardial effusion. NO acute infectious etiology was noted. CT of the Chest demonstrated no acute pulmonary embolus. Carotid duplex showed only moderate right carotid plaque. I contacted cardiology who agreed that a loop recorder would be the best option and would be placed outpatient. Patient has been hemodyn stable, orthostatics negative. BP stable, Heart rates sinus in the 60-80s, on room air. He has walked the unit without any difficulty and eating well, feels great. Discussed with patient and he is okay for discharge home with followup to Cardiology. Cause of syncope is unclear, r/o arrythmia versus vasovagal episode. Procedures/Imaging: transthoracic echocardiogram, CT chest, Carotid duplex Laboratory/Data: see chart Discharge Medications: none Diet: heart healthy, low Na, low fat. Activity: as tolerated Condition upon discharge: stable/improved Disposition: discharge to Home Code Status: full code Follow-up: with PCP Dr Christensen. Follow up with office of Dr Ericka Chapman for scheduling of loop recorder placement. Phone number has been given. Total Discharge time >30minutes Alfonso Helms MD Buildings And Grounds Coordinator (Electronically Signed)
== END 2017-09-03 16:40 | disposition home or self-care (01) | DRG 312 ==
LOC: ED 10:18 → ICU 12:26
PROVIDERS: ADMIT Internal Medicine Critical Care Medicine; ATTEND Internal Medicine Critical Care Medicine
DX: R55 Syncope and collapse (principal); R57.9 Shock, unspecified; I95.9 Hypotension, unspecified; E87.2 Acidosis; E83.42 Hypomagnesemia; F10.21 Alcohol dependence, in remission; Z79.899 Other long term (current) drug therapy; Z80.9 Family history of malignant neoplasm, unspecified; R68.0 Hypothermia, not associated with low environmental temperature; Z91.018 Allergy to other foods
CPT/HCPCS: 36415; 70450; 71045; 71275; 72125; 80048; 80053; 80307; 80320; 81003; 81015; 82272; 82533; 82550; 82565; 83036; 83605; 83735; 83880; 84145; 84439; 84443; 84479; 84484; 84520; 85025; 85379; 85384; 85610; 85652; 85730; 86140; 87040; 87493; 87502; 87641; 87651; 93005; 93306; 93880; 94760; 99283; A9270-GY; G0480; J1644; J1720; J2405; J2543; J3475; Q9967

== ENCOUNTER → 2017-12-23 08:14 | Day surgery (SDC) | payer MEDICARE, BC ==
[~2017-12-23 08:14] MED LIST: Heparin 2 UNITS/ML IVPREMIX* 2,000 ML IV ONE; Heparin(*) 1000 UNIT/ML 10 ML VIAL CATH LAB IV ONE; Iohexol 350 (CONTRAST) 200 ML MDV IV ONE; Lidocaine 1% INJ* 10 MG/ML 30 ML SDV ONE; Midazolam* 1 MG/ML 10 ML VIAL (10 MG) ONE; NS 0.9% 1000 ML* 1,000 ML IV SCH; VERAPAMIL 2.5 MG/ML 2 ML VIAL ** 5 mg/2 ml ONE; fentaNYL* 50 MCG/ML 2 ML VIAL (100 MCG VIAL) ONE; nitroGLYCERIN DRIP* 25,000 MCG/250 ML BTL ONE
[2017-12-23 13:46] VITALS: BP 107/58
--- NOTE | 2017-12-24 08:44 | CATH ---
CC: Dr. Marrufo; Dr. Chapman CATH REPORT: DATE OF PROCEDURE: 12/23/17 PRIMARY CARE PHYSICIAN: Dr. Marrufo. IMPORT/EXPORT FREIGHT FORWARDER: Dr. Chapman. PROCEDURES: Right radial artery access, bilateral selective coronary cineangiography, left heart cat heterization, left ventriculography. HISTORY: A 67-year-old male with previous episode of exercise-induced syncope, recent exercise stres s test which was positive in stage I, and demonstrated a drop in systolic blood pressure with exercis e, although without chest pain. He has never had angina. The patient is here for solely diagnostic catheterization, having expressly declined any intervention as he is expecting to secure a second opi nion if he has obstructive coronary disease. PROCEDURE ACCESS: Right radial artery sheath 6F slender. MEDICATIONS: 1. Subcu lidocaine. 2. IV Versed. 3. IV fentanyl. 4. Heparin 3000 units. 5. Verapamil 3 mg. 6. Nitroglycerin 300 mcg. DIAGNOSTIC CATHETER: 5F TIG4 and 5 pigtail. HEMODYNAMICS: Initial BP 130/75, LV 97/3-19, no aortic valve gradient on pullback. ANGIOGRAPHY: Left main: The left main is normal, has no stenosis. LAD: The LAD is moderate, has a 90% stenosis involving the origin of a moderate- sized diagonal as w ell as the continuation of the LAD, which is smaller than the diagonal as well as a septal per diem , the LAD has slow flow, has distal right-to- left collateral filling. This is a 111 bifurcation les ion. Circumflex: The circumflex is large, not dominant, with a small first marginal, large second margina l, small posterolateral. The circumflex has no significant stenosis. RCA: The RCA is large, dominant, smooth, without stenosis, supplies a large PDA, which provides a ri ght-to-left collateral to the apical LAD. LV gram: LV wall motion is normal, estimated ejection fraction is 60%, there was no mitral regurgita tion. CONCLUSION: 1. Single-vessel disease LAD with complex bifurcation lesion. 2. Normal LV systolic function. 3. Normal left-sided hemodynamics. 4. Successful right radial artery access. 5. The patient will be seeking a second opinion regarding bypass grafting versus complex PCI. In interim, Lipitor 80, Brilinta 90 b.i.d., p.r.n. nitroglycerin were added to his regimen. He was in structed to avoid all strenuous physical exertion. [id number]/[facility] #: [id number]
== END | disposition home or self-care (01) ==
LOC: CHICATH 08:14
PROVIDERS: ATTEND Internal Medicine Cardiovascular Disease
DX: I25.10 Atherosclerotic heart disease of native coronary artery without angina pectoris (principal); R55 Syncope and collapse; I95.9 Hypotension, unspecified; Z87.891 Personal history of nicotine dependence; E78.5 Hyperlipidemia, unspecified; M10.9 Gout, unspecified; I34.0 Nonrheumatic mitral (valve) insufficiency
CPT/HCPCS: 93458; 99156; 99157; J1644; J2250; J3010

== ENCOUNTER 2021-01-01 17:01 | Inpatient (IN) ==
[2021-01-01] MEDS ORDERED: Ondansetron 4 mg VIAL 2 MG/ML 2 ml VIAL IV PRN (18:14)
[2021-01-01 19:00] LABS: ABS Lymphocytes 1.2 10^3/ul (1.0-4.8); ABS Neutrophils 3.3 10^3/ul (1.5-7.7); Eosinophil % 0.2 %; Hematocrit 45 % (42-52); Hemoglobin 15.7 g/dL (14.0-18.0); Lymphocyte % 22.2 %; Mean Corpuscular HGB Conc 35 g/dL (31-36); Mean Corpuscular Hemoglobin 32 pg (27-31); Mean Corpuscular Volume 92 fL (80-94); Mean Platelet Volume 7.5 fL (7.4-10.4); Platelet Count 265 10^3/uL (150-450); Red Blood Count 4.89 10^6 /uL (4.18-5.48); Red Cell Distribution Width 13 % (10-15); White Blood Count 5.6 10^3/uL (3.5-10.8)
[2021-01-01 19:26] LABS: Albumin 3.8 g/dL (3.2-5.2); Albumin/Globulin Ratio 1.7 (1-3); Calcium 8.9 mg/dL (8.6-10.3); EGFR African American 88.4 (>60); Globulin 2.3 g/dL (2-4); Potassium 4.1 mmol/L (3.5-5.0); Total Bilirubin 1.1 mg/dL (0.2-1.0); Total Protein 6.1 g/dL (6.4-8.9)
[2021-01-01 20:29] LABS: INR 1.04 (0.82-1.09)
[2021-01-02] MEDS: NS 0.9% 1000 ml BAG 1,000 ML IV SCH ×2 (00:43→17:24)
[2021-01-02 07:44] LABS: C Reactive Protein 39.77 mg/L (<8.01)
[2021-01-02 07:44] LABS: ABS Lymphocytes 1.4 10^3/ul (1.0-4.8); Eosinophil % 0.6 %; Hematocrit 40 % (42-52); Hemoglobin 14.3 g/dL (14.0-18.0); Lymphocyte % 25.8 %; Mean Corpuscular HGB Conc 36 g/dL (31-36); Mean Corpuscular Hemoglobin 33 pg (27-31); Mean Corpuscular Volume 92 fL (80-94); Nucleated Red Blood Cells % 0.1; Platelet Count 253 10^3/uL (150-450); Red Cell Distribution Width 13 % (10-15); White Blood Count 5.4 10^3/uL (3.5-10.8)
[2021-01-02 07:59] LABS: Calcium 8.3 mg/dL (8.6-10.3); EGFR African American 120.9 (>60); EGFR Non-African American 99.9 (>60); Potassium 3.7 mmol/L (3.5-5.0)
[2021-01-02] MEDS ORDERED: Aspirin EC 81 mg TAB.EC (enteric coated) PO SCH (09:00)
[2021-01-02] MEDS ORDERED: CALCIUM GLUCONATE 1GM/50ML NS 1 GM/50 ML BAG IV ONE (10:00)
[2021-01-02] MEDS ORDERED: Sodium Phosphate ADULT ENEMA 133 ML BTL PR ONE (10:00)
[2021-01-02] MEDS ORDERED: fentaNYL 100 mcg/2 ml 50 MCG/ML VIAL ONE (15:02)
[2021-01-02] MEDS ORDERED: Midazolam 10 mg/10 ml VIAL 1 mg/ml 10 ml VIAL (10 mg) ONE (15:02)
[2021-01-02] MEDS: Acetaminophen IV 1 GM/100ML 100 ML IVPB SCH (23:17)
[2021-01-03] MEDS: NS 0.9% 1000 ml BAG 1,000 ML IV SCH (03:13)
[2021-01-03 04:52] LABS: ABS Lymphocytes 1.2 10^3/ul (1.0-4.8); ABS Monocytes 1.1 10^3/ul (0-0.8); ABS Neutrophils 2.9 10^3/ul (1.5-7.7); Eosinophil % 0.7 %; Hematocrit 41 % (42-52); Lymphocyte % 22.7 %; Mean Corpuscular HGB Conc 35 g/dL (31-36); Mean Corpuscular Hemoglobin 32 pg (27-31); Mean Corpuscular Volume 94 fL (80-94); Platelet Count 238 10^3/uL (150-450); Red Blood Count 4.34 10^6 /uL (4.18-5.48); Red Cell Distribution Width 13 % (10-15); White Blood Count 5.2 10^3/uL (3.5-10.8)
[2021-01-03 05:13] LABS: Calcium 8.2 mg/dL (8.6-10.3); EGFR African American 134.9 (>60); EGFR Non-African American 111.5 (>60); Magnesium 1.9 mg/dL (1.9-2.7); Potassium 3.8 mmol/L (3.5-5.0)
[2021-01-03] MEDS ORDERED: Dextrose 50% Syringe 50 ml 25 GM/50 ML SYRINGE ONE (05:20)
[2021-01-03] MEDS ORDERED: Dextrose 50% VIAL 50 ml IV ONE (05:20)
[2021-01-03] MEDS ORDERED: Dextrose 50% Syringe 50 ml 25 GM/50 ML SYRINGE IV PUSH ONE (05:20)
[2021-01-03] MEDS: Acetaminophen IV 1 GM/100ML 100 ML IVPB SCH ×2 (05:31→12:07)
[2021-01-03] MEDS ORDERED: D5LR 20 MEQ KCL 1000 ml BAG 1,000 ML IV SCH (10:00)
[2021-01-03] MEDS: Pantoprazole VIAL 40 MG VIAL IV SCH (10:05)
[2021-01-03] MEDS ORDERED: Propofol 10 MG/ML 20 ML BTL ONE (15:35)
[2021-01-03] MEDS ORDERED: Dexamethasone IV 4 MG/ML VIAL 1 ml VIAL ONE (15:35)
[2021-01-03] MEDS ORDERED: fentaNYL 100 mcg/2 ml 50 MCG/ML VIAL ONE ×2 (15:35→18:25)
[2021-01-03] MEDS ORDERED: Rocuronium 50 mg VIAL 10 mg/ml 5 ml VIAL (50 mg) ONE ×2 (15:35→18:23)
[2021-01-03] MEDS ORDERED: Midazolam 2 mg/2 ml VIAL 1 mg/ml 2 ml VIAL (2 mg) ONE (15:35)
[2021-01-03] MEDS ORDERED: Lidocaine 2% PF 5 ML VIAL ONE (15:35)
[2021-01-03] MEDS ORDERED: Ondansetron 4 mg VIAL 2 MG/ML 2 ml VIAL ONE (15:35)
[2021-01-03] MEDS ORDERED: ERTApenem 1 GM in NS 0.9% 50 ML 50 ML IVPB ONE (16:00)
[2021-01-03] MEDS ORDERED: Bupivacaine 0.25% EPI 200,000 30 ML SDV ONE ×2 (16:24→17:29)
[2021-01-03] MEDS ORDERED: Phenylephrine 40 mcg/mL 10mL (400mcg) SYRINGE ONE (17:20)
[2021-01-03] MEDS ORDERED: Desflurane 240 ML INH ONE (19:16)
[2021-01-03] MEDS ORDERED: Phenylephrine IV 10 MG/ML 1 ml VIAL ONE (20:12)
[2021-01-03] MEDS ORDERED: Bupivacaine 0.25% SDV PF 10 ML VIAL INJ ONE (20:57)
[2021-01-03] MEDS ORDERED: Acetaminophen IV 1 GM/100ML 100 ML ONE (21:02)
[2021-01-03] MEDS ORDERED: Ondansetron 4 mg VIAL 2 MG/ML 2 ml VIAL IV PRN (21:31)
[2021-01-03] MEDS ORDERED: DiMENhydriNATE IV 50 mg/ml 1 ml VIAL IV PUSH PRN (21:31)
[2021-01-03] MEDS ORDERED: Phenylephrine IV 50 MG in NS 0.9% 250 ml 245 ML IV PRN (21:31)
[2021-01-03] MEDS ORDERED: fentaNYL 100 mcg/2 ml 50 MCG/ML VIAL IV PRN (21:31)
[2021-01-03] MEDS ORDERED: Naloxone 0.4 mg VIAL 0.4 mg/ml 1 ml VIAL IV PRN (21:31)
[2021-01-03] MEDS ORDERED: Naloxone 0.4 mg VIAL 0.4 mg/ml 1 ml VIAL IV PUSH PRN (22:42)
[2021-01-03] MEDS ORDERED: HYDROmorphone PCA 20 MG/20 ML PCA.SYRING PCA SCH (23:00)
[2021-01-04] MEDS: Acetaminophen IV 1 GM/100ML 100 ML IVPB SCH ×6 (01:44→19:37)
[2021-01-04] MEDS ORDERED: D5LR 20 MEQ KCL 1000 ml BAG 1,000 ML IV SCH ×2 (04:33→09:55)
[2021-01-04 05:34] LABS: ABS Lymphocytes 0.5 10^3/ul (1.0-4.8); ABS Monocytes 0.5 10^3/ul (0-0.8); ABS Neutrophils 3.3 10^3/ul (1.5-7.7); Hematocrit 36 % (42-52); Hemoglobin 12.9 g/dL (14.0-18.0); Mean Corpuscular HGB Conc 35 g/dL (31-36); Mean Corpuscular Hemoglobin 33 pg (27-31); Mean Corpuscular Volume 92 fL (80-94); Mean Platelet Volume 7.8 fL (7.4-10.4); Nucleated Red Blood Cells % 0.1; Platelet Count 199 10^3/uL (150-450); Red Blood Count 3.96 10^6 /uL (4.18-5.48); Red Cell Distribution Width 13 % (10-15); White Blood Count 4.2 10^3/uL (3.5-10.8)
[2021-01-04 05:55] LABS: Calcium 7.5 mg/dL (8.6-10.3); EGFR Non-African American 141.3 (>60); Magnesium 1.6 mg/dL (1.9-2.7); Potassium 3.9 mmol/L (3.5-5.0)
[2021-01-04] MEDS: Pantoprazole VIAL 40 MG VIAL IV SCH (08:38)
[2021-01-04] MEDS ORDERED: Magnesium Sulfate IV 3 GM in NS 0.9% 100 ml BAG 100 ML IVPB ONE (09:00)
[2021-01-04] MEDS: Enoxaparin 30 MG/0.3 ML SYR SUBCUT SCH (09:27)
[2021-01-04] MEDS ORDERED: HYDROmorphone 0.5 MG/0.5 ML SYRINGE IV PRN (09:52)
[2021-01-04] MEDS ORDERED: Acetaminophen IV 1 GM/100ML 100 ML IVPB SCH (10:00)
[2021-01-05] MEDS: Acetaminophen IV 1 GM/100ML 100 ML IVPB SCH (04:23)
[2021-01-05 05:44] LABS: ABS Lymphocytes 0.7 10^3/ul (1.0-4.8); ABS Monocytes 0.6 10^3/ul (0-0.8); ABS Neutrophils 5.5 10^3/ul (1.5-7.7); Eosinophil % 0.7 %; Hematocrit 36 % (42-52); Hemoglobin 12.6 g/dL (14.0-18.0); Lymphocyte % 10.8 %; Mean Corpuscular HGB Conc 36 g/dL (31-36); Mean Corpuscular Hemoglobin 33 pg (27-31); Mean Corpuscular Volume 91 fL (80-94); Mean Platelet Volume 7.5 fL (7.4-10.4); Platelet Count 195 10^3/uL (150-450); Red Blood Count 3.88 10^6 /uL (4.18-5.48); Red Cell Distribution Width 14 % (10-15); White Blood Count 6.9 10^3/uL (3.5-10.8)
[2021-01-05] MEDS: Enoxaparin 30 MG/0.3 ML SYR SUBCUT SCH (08:54)
[2021-01-05] MEDS ORDERED: Iohexol 300 (CONTRAST) 10 ML SDV IV ONE (09:42)
[2021-01-06] MEDS: Enoxaparin 30 MG/0.3 ML SYR SUBCUT SCH (08:36)
[2021-01-07] MEDS: Enoxaparin 30 MG/0.3 ML SYR SUBCUT SCH (07:39)
[2021-01-08] MEDS: Enoxaparin 30 MG/0.3 ML SYR SUBCUT SCH (08:28)
[2021-01-08 11:22] VITALS: BP 102/67
== END 2021-01-08 11:55 | disposition home health service (06) ==
LOC: SSU 17:01
PROVIDERS: ADMIT Hospitalist; ATTEND Surgery

== ENCOUNTER 2021-01-10 11:42 | Observation (INO) ==
[2021-01-10] MEDS ORDERED: ZOSYN 3.375 GM x ONE DOSE over 30 miuntes IV (15:00)
[2021-01-10 15:06] LABS: ABS Lymphocytes 1.4 10^3/ul (1.0-4.8); ABS Neutrophils 7.4 10^3/ul (1.5-7.7); Eosinophil % 0.3 %; Hematocrit 38 % (42-52); Hemoglobin 13.2 g/dL (14.0-18.0); Lymphocyte % 14.6 %; Mean Corpuscular HGB Conc 35 g/dL (31-36); Mean Corpuscular Hemoglobin 32 pg (27-31); Mean Corpuscular Volume 92 fL (80-94); Mean Platelet Volume 7.1 fL (7.4-10.4); Platelet Count 284 10^3/uL (150-450); Red Blood Count 4.16 10^6 /uL (4.18-5.48); Red Cell Distribution Width 14 % (10-15); White Blood Count 9.9 10^3/uL (3.5-10.8)
[2021-01-10] MEDS: D5W 1/2 NS 40 Meq KCL 1000 ml 1,000 ML IV SCH (15:10)
[2021-01-10 15:15] LABS: Activated Partial Thrombo Time 35.1 seconds (26.0-38.0); INR 0.98 (0.86-1.15)
[2021-01-10 15:24] LABS: Albumin 2.7 g/dL (3.2-5.2); Calcium 8.1 mg/dL (8.6-10.3); Magnesium 1.7 mg/dL (1.9-2.7); Potassium 2.9 mmol/L (3.5-5.0); Total Bilirubin 0.6 mg/dL (0.2-1.0)
[2021-01-10 15:31] LABS: Albumin/Globulin Ratio 1.1 (1-3); EGFR African American 137.2 (>60); EGFR Non-African American 113.4 (>60); Globulin 2.4 g/dL (2-4); Total Protein 5.1 g/dL (6.4-8.9)
[2021-01-10] MEDS ORDERED: Naloxone 0.4 mg VIAL 0.4 mg/ml 1 ml VIAL IV PRN (19:45)
[2021-01-10] MEDS ORDERED: DiMENhydriNATE IV 50 mg/ml 1 ml VIAL IV PUSH PRN (19:45)
[2021-01-10] MEDS ORDERED: Ondansetron 4 mg VIAL 2 MG/ML 2 ml VIAL IV PRN (19:45)
[2021-01-10] MEDS ORDERED: oxyCODONE/Acetamin 5/325 mg TAB PO PRN (19:45)
[2021-01-10] MEDS ORDERED: fentaNYL 100 mcg/2 ml 50 MCG/ML VIAL IV PRN (19:45)
[2021-01-10] MEDS: Piperacillin/Tazobactam VIAL 3.375 GM in NS 0.9% 100 ml BAG 100 ML IVPB SCH (21:03)
[2021-01-11] MEDS: Piperacillin/Tazobactam VIAL 3.375 GM in NS 0.9% 100 ml BAG 100 ML IVPB SCH ×2 (04:05→11:39)
[2021-01-11] MEDS: D5W 1/2 NS 40 Meq KCL 1000 ml 1,000 ML IV SCH (06:59)
[2021-01-11 11:22] VITALS: BP 99/50
== END 2021-01-11 14:31 | disposition home or self-care (01) ==
LOC: SSU 11:42 → ED 11:42 → SSU 14:57
PROVIDERS: ADMIT Surgery; ATTEND Surgery

== ENCOUNTER 2021-06-06 05:40 | Inpatient (IN) ==
[2021-06-06] MEDS ORDERED: Lactated Ringers 1000 ml BAG 1,000 ML IV SCH (06:00)
[2021-06-06] MEDS ORDERED: Buffered Lidocaine 1% SYRIN 1 ml INTRADERM ONE (06:00)
[2021-06-06] MEDS ORDERED: ceFOXitin 2 GM IVPREMIX 2 GM/50 ML BAG ONE (06:26)
[2021-06-06] MEDS ORDERED: Heparin 5000 UNITS/ML 1 mL VIAL ONE (06:26)
[2021-06-06] MEDS ORDERED: Dexamethasone IV 4 MG/ML VIAL 1 ml VIAL ONE (07:04)
[2021-06-06] MEDS ORDERED: Propofol 10 MG/ML 20 ML BTL ONE (07:04)
[2021-06-06] MEDS ORDERED: Midazolam 2 mg/2 ml VIAL 1 mg/ml 2 ml VIAL (2 mg) ONE (07:04)
[2021-06-06] MEDS ORDERED: fentaNYL 250 mcg/5 ml 50 MCG/ML 5 ml VIAL (250 MCG) ONE (07:04)
[2021-06-06] MEDS ORDERED: Rocuronium 50 mg VIAL 10 mg/ml 5 ml VIAL (50 mg) ONE ×2 (07:04→09:07)
[2021-06-06] MEDS ORDERED: Lidocaine 2% PF 5 ML VIAL ONE (07:05)
[2021-06-06] MEDS ORDERED: Bupivacaine 0.25% SDV PF 10 ML VIAL INJ ONE (07:06)
[2021-06-06] MEDS ORDERED: Lidocaine 1% w EPI 1:100,000 MDV 20 ML VIAL ONE (07:06)
[2021-06-06] MEDS ORDERED: Phenylephrine IV 10 MG/ML 1 ml VIAL ONE ×3 (07:59→11:37)
[2021-06-06] MEDS ORDERED: Glycopyrrolate IV 0.2 MG/ML 1 ML VIAL ONE (08:37)
[2021-06-06] MEDS ORDERED: Ondansetron 4 mg VIAL 2 MG/ML 2 ml VIAL ONE (08:53)
[2021-06-06] MEDS ORDERED: HYDROmorphone 1 MG/1 ML SYRINGE IV PRN (08:58)
[2021-06-06] MEDS ORDERED: DiMENhydriNATE IV 50 mg/ml 1 ml VIAL IV PUSH PRN (08:58)
[2021-06-06] MEDS ORDERED: Naloxone 0.4 mg VIAL 0.4 mg/ml 1 ml VIAL IV PRN (08:58)
[2021-06-06] MEDS ORDERED: Ondansetron 4 mg VIAL 2 MG/ML 2 ml VIAL IV PRN ×2 (08:58→12:28)
[2021-06-06] MEDS ORDERED: diPHENhydraMINE IV 50 MG/ML 1 ml VIAL (BENADRYL) IV PRN (08:58)
[2021-06-06] MEDS ORDERED: Acetaminophen IV 1 GM/100ML 100 ML IV PRN (08:58)
[2021-06-06] MEDS ORDERED: fentaNYL 100 mcg/2 ml 50 MCG/ML VIAL IV PRN (08:58)
[2021-06-06] MEDS ORDERED: Sugammadex 500 MG/5 ML 5 ml VIAL IV PUSH ONE (11:57)
[2021-06-06] MEDS ORDERED: HYDROmorphone 1 MG/1 ML SYRINGE IV SLOW PU PRN (12:28)
[2021-06-06] MEDS: Tobramycin/Dexameth OPTH.SUSP 2.5 ml BTL RIGHT EYE SCH ×2 (16:10→21:20)
[2021-06-07] MEDS: Tobramycin/Dexameth OPTH.SUSP 2.5 ml BTL RIGHT EYE SCH ×3 (05:38→21:12)
[2021-06-07 06:49] LABS: ABS Lymphocytes 1.4 10^3/ul (1.0-4.8); ABS Monocytes 1.5 10^3/ul (0-0.8); Hematocrit 37 % (42-52); Hemoglobin 12.8 g/dL (14.0-18.0); Lymphocyte % 11.7 %; Mean Corpuscular HGB Conc 35 g/dL (31-36); Mean Corpuscular Hemoglobin 30 pg (27-31); Mean Corpuscular Volume 86 fL (80-94); Mean Platelet Volume 7.9 fL (7.4-10.4); Platelet Count 166 10^3/uL (150-450); Red Blood Count 4.25 10^6 /uL (4.18-5.48); Red Cell Distribution Width 15 % (10-15); White Blood Count 11.9 10^3/uL (3.5-10.8)
[2021-06-07 07:11] LABS: Calcium 8.5 mg/dL (8.6-10.3); Potassium 4.5 mmol/L (3.5-5.0); eGFR CKD-EPI 93.1 (>60)
[2021-06-07] MEDS: Enoxaparin 40 MG/0.4 ML SYR SUBCUT SCH (09:18)
[2021-06-08] MEDS: Tobramycin/Dexameth OPTH.SUSP 2.5 ml BTL RIGHT EYE SCH ×3 (06:12→23:12)
[2021-06-08] MEDS: Enoxaparin 40 MG/0.4 ML SYR SUBCUT SCH (08:04)
[2021-06-08 09:37] LABS: ABS Lymphocytes 1.5 10^3/ul (1.0-4.8); ABS Monocytes 1.2 10^3/ul (0-0.8); ABS Neutrophils 7.9 10^3/ul (1.5-7.7); Eosinophil % 0.1 %; Hematocrit 40 % (42-52); Hemoglobin 14.1 g/dL (14.0-18.0); Lymphocyte % 14.1 %; Mean Corpuscular HGB Conc 35 g/dL (31-36); Mean Corpuscular Hemoglobin 30 pg (27-31); Mean Corpuscular Volume 87 fL (80-94); Mean Platelet Volume 7.9 fL (7.4-10.4); Platelet Count 195 10^3/uL (150-450); Red Blood Count 4.63 10^6 /uL (4.18-5.48); Red Cell Distribution Width 15 % (10-15); White Blood Count 10.7 10^3/uL (3.5-10.8)
[2021-06-09 06:40] LABS: HDL Cholesterol 49.1 mg/dL
[2021-06-09] MEDS: Tobramycin/Dexameth OPTH.SUSP 2.5 ml BTL RIGHT EYE SCH (07:22)
[2021-06-09 07:27] LABS: ABS Eosinophils 0.1 10^3/ul (0-0.6); ABS Lymphocytes 1.6 10^3/ul (1.0-4.8); ABS Neutrophils 4.8 10^3/ul (1.5-7.7); Hematocrit 38 % (42-52); Hemoglobin 13.6 g/dL (14.0-18.0); Lymphocyte % 21.7 %; Mean Corpuscular HGB Conc 36 g/dL (31-36); Mean Corpuscular Hemoglobin 31 pg (27-31); Mean Corpuscular Volume 87 fL (80-94); Mean Platelet Volume 8.6 fL (7.4-10.4); Nucleated Red Blood Cells % 0.1; Platelet Count 166 10^3/uL (150-450); Red Blood Count 4.36 10^6 /uL (4.18-5.48); Red Cell Distribution Width 15 % (10-15); White Blood Count 7.6 10^3/uL (3.5-10.8)
[2021-06-09 07:47] VITALS: BP 111/71
[2021-06-09] MEDS: Enoxaparin 40 MG/0.4 ML SYR SUBCUT SCH (09:13)
== END 2021-06-09 10:35 | disposition home or self-care (01) | DRG 331 ==
LOC: AA 05:40 → SSU 15:07
PROVIDERS: ADMIT Surgery; ATTEND Surgery